=== PATIENT | male | born 1965 | race Caucasian/White ===

== ENCOUNTER → 2019-01-24 | Outpatient (REF) | payer OTHER | LOC: M SFHCLERA 14:04 | PROVIDERS: ATTEND Nurse Practitioner Family | DX: R53.81 Other malaise (principal) ==

== ENCOUNTER → 2020-05-03 | Outpatient (CLI) | payer SELFPAY | LOC: M LABSMTC 09:56 | PROVIDERS: ATTEND Pediatrics | DX: Z20.822 Contact with and (suspected) exposure to COVID-19 (principal) ==